=== PATIENT | female | born 1945 | race Caucasian/White ===

== ENCOUNTER → 2017-05-02 | Outpatient (CLI) | payer MEDICARE | END | disposition home or self-care (01) | LOC: CFH 10:14 | PROVIDERS: ATTEND Family Medicine | DX: Z12.2 Encounter for screening for malignant neoplasm of respiratory organs (principal); I25.10 Atherosclerotic heart disease of native coronary artery without angina pectoris; F17.210 Nicotine dependence, cigarettes, uncomplicated | CPT/HCPCS: G0297 ==

== ENCOUNTER → 2018-07-06 | Outpatient (CLI) | payer MEDICARE ==
[~2018-07-06] MED LIST: ATEN25TA PO; AZIT500T5 PO; COENZYME Q 10 PO; DICLOFENAC PO; FLUT1AER INH; GLUC1CAP48 PO; GUAI-103 PO; GUAI600T31 PO; LEVO750T26 PO; LINE600T37 PO; METH125V16 IM; METOPROLOL PO; MONT10TA9 PO; PRED20TA PO; UBID1CAP43 PO; VITAMIN C PO; diclofenac PO
[2018-07-06 12:44] LABS: MICROSCOPIC NOT IND
[2018-07-06 12:45] LABS: CULTURE INDICATED? NO
[2018-07-06 12:55] LABS: ANION GAP 4 mmol/L (5-15); CALCIUM 8.9 mg/dL (8.5-10.1); CHLORIDE 107 mmol/L (98-107); CREATININE 0.77 mg/dL (0.55-1.02); INTERNATIONAL NORMALIZED RATIO 0.98 (0.93-1.1); PROTHROMBIN TIME 10.2 Seconds (9.6-11.5)
[2018-07-06 13:00] LABS: BASOPHILS # (AUTO) 0.03 x10^3/uL (0-0.1); BASOPHILS % (AUTO) 0 % (0-1); EOSINOPHILS # (AUTO) 0.15 x10^3/uL (0-0.4); EOSINOPHILS % (AUTO) 2 % (1-7); LYMPHOCYTES # (AUTO) 1.05 x10^3/uL (1-3.4); LYMPHOCYTES % (AUTO) 16 % (22-44); MD NO; MEAN CORPUSCULAR HEMOGLOBIN 31.2 pg (27.0-34.8); MEAN CORPUSCULAR HGB CONC 33.7 g/dL (32.4-35.8); MEAN CORPUSCULAR VOLUME 92.7 fL (80-100); MEAN PLATELET VOLUME 7.1 fL (7.4-10.4); MONOCYTES # (AUTO) 0.64 x10^3/uL (0.2-0.8); MONOCYTES % (AUTO) 10 % (2-9); NEUTROPHILS % (AUTO) 72 % (42-75); PLATELET COUNT 400 x10^3/uL (130-400); RED CELL DISTRIBUTION WIDTH 14.2 % (9.6-15.2)
== END | disposition home or self-care (01) ==
LOC: STAR 11:04
PROVIDERS: ATTEND Neurological Surgery
DX: Z01.818 Encounter for other preprocedural examination (principal); M48.062 Spinal stenosis, lumbar region with neurogenic claudication; M54.16 Radiculopathy, lumbar region
CPT/HCPCS: 36415; 71046; 80048; 81003; 85025; 85610; 85730; 93005

== ENCOUNTER 2018-07-12 05:22 | Day surgery (SDC) | payer MEDICARE ==
[2018-07-06 11:59] VITALS: BP 127/79
[~2018-07-12] VITALS: Ht 162.6 cm; Wt 67.1 kg
[2018-07-12] MEDS ORDERED: LACTATED RINGERS 1,000 ML IV SCH (06:08)
[2018-07-12 06:11] VITALS: BP 127/79
[2018-07-12] MEDS ORDERED: BUPIVACAINE/PF-EPI 0.5% 1:200K ONE (06:17)
[2018-07-12] MEDS ORDERED: THROMBIN 5,000 UNIT VIAL TP ONE (06:18)
[2018-07-12] MEDS ORDERED: BACITRACIN 50,000 UNIT ONE (06:18)
[2018-07-12] MEDS ORDERED: VANCOMYCIN 1,000 MG ONE (06:18)
[2018-07-12] MEDS ORDERED: FENTANYL PF 250 MCG/5ML ONE (06:28)
[2018-07-12] MEDS ORDERED: MIDAZOLAM 1 MG/ML, 2ML ONE (06:28)
[2018-07-12] MEDS ORDERED: LIDOCAINE-MPF 2% ,5ML ONE (06:29)
[2018-07-12] MEDS ORDERED: PROPOFOL 10 MG/ML, 20ML ONE (06:29)
[2018-07-12] MEDS ORDERED: ACETAMINOPHEN 500 MG TABLET PO ONE (06:30)
[2018-07-12] MEDS ORDERED: LIDOCAINE-MPF 1%, 2ML INFIL ONE (06:30)
[2018-07-12] MEDS ORDERED: ROCURONIUM 10MG/ML,5ML ONE (06:30)
[2018-07-12] MEDS ORDERED: SCOPOLAMINE PATCH, 1.5MG PATCH.TD72 TD ONE (06:30)
[2018-07-12] MEDS ORDERED: GABAPENTIN 300 MG CAPSULE PO ONE (06:30)
[2018-07-12] MEDS ORDERED: CEFAZOLIN 1,000 MG ONE (06:31)
[2018-07-12] MEDS ORDERED: WATER-INJECTION,STERILE 10 ML IV ONE (06:31)
[2018-07-12] MEDS ORDERED: DEXAMETHASONE 4 MG/ML, 1ML ONE ×2 (06:32)
[2018-07-12] MEDS ORDERED: PHENYLEPHRINE 10 MG/ML ONE (06:32)
[2018-07-12] MEDS ORDERED: CLINDAMYCIN 150 MG/ML, 6ML ONE (07:03)
[2018-07-12] MEDS ORDERED: HYDROmorphone 2 MG/ML, 1ML IV PRN (08:00)
[2018-07-12] MEDS ORDERED: MEPERIDINE/PF 25MG/0.5ML IVPush PRN (08:00)
[2018-07-12] MEDS ORDERED: LABETALOL 5MG/ML, 20ML IV PRN (08:00)
[2018-07-12] MEDS ORDERED: HALOPERIDOL 5 MG/ML IV PRN (08:00)
[2018-07-12] MEDS ORDERED: FENTANYL PF 100 MCG/2ML IV PRN (08:00)
[2018-07-12] MEDS ORDERED: ALBUTEROL/IPRATROPIUM 2.5MG/0.5MG, 3 ML NPPB PRN (08:00)
[2018-07-12] MEDS ORDERED: PROMETHAZINE 25 MG/ML, 1ML IV PRN (08:00)
[2018-07-12] MEDS ORDERED: OXYcodone 5 MG/5 ML ORAL.SOL UDC PO PRN (08:00)
[2018-07-12] MEDS ORDERED: ONDANSETRON 2MG/ML, 2ML ONE ×2 (08:03)
[2018-07-12] MEDS ORDERED: OXYcodone 5 MG/5 ML ORAL.SOL UDC ONE (08:45)
[2018-07-12] MEDS ORDERED: FENTANYL PF 100 MCG/2ML ONE (08:45)
[2018-07-12] MEDS ORDERED: METHOCARBAMOL 750 MG TABLET ONE (08:56)
[2018-07-12] MEDS ORDERED: METHOCARBAMOL 1,000 MG in DEXTROSE 5% 100 ML IV ONE (09:00)
[2018-07-12] MEDS ORDERED: ALBUTEROL/IPRATROPIUM 2.5MG/0.5MG, 3 ML ONE (09:10)
[2018-07-12] MEDS ORDERED: VASOPRESSIN 20 UNIT/ML, 1ML ONE (09:25)
[2018-07-12] MEDS ORDERED: METHOCARBAMOL 750 MG TABLET PO ONE (10:00)
== END 2018-07-12 13:10 | disposition home or self-care (01) ==
LOC: OUT 05:22
PROVIDERS: ATTEND Neurological Surgery
DX: M54.16 Radiculopathy, lumbar region (principal); M48.061 Spinal stenosis, lumbar region without neurogenic claudication; M54.12 Radiculopathy, cervical region; Z98.890 Other specified postprocedural states; Z88.1 Allergy status to other antibiotic agents; Z88.0 Allergy status to penicillin; Z87.39 Personal history of other diseases of the musculoskeletal system and connective tissue; Z79.899 Other long term (current) drug therapy
CPT/HCPCS: 63047; 72100; 94640; J0690; J1100; J2250; J2370; J2405; J2704; J3010; J3370; J3490; J7120; J7620; J2800

== ENCOUNTER → 2021-04-08 | Outpatient (CLI) | payer MEDICARE ==
[~2021-04-08] MED LIST changes: +AZIT500T10 PO; -AZIT500T5 PO; +LINE600T12 PO; -LINE600T37 PO; +MONT10TA17 PO; -MONT10TA9 PO
== END | disposition home or self-care (01) ==
LOC: CFH 10:20
PROVIDERS: ATTEND Family Medicine
DX: Z13.820 Encounter for screening for osteoporosis (principal); Z12.31 Encounter for screening mammogram for malignant neoplasm of breast; N95.8 Other specified menopausal and perimenopausal disorders
CPT/HCPCS: 77063; 77067; 77080